=== PATIENT | male | born 1940 | race African-American/Black ===

== ENCOUNTER 2017-12-05 05:40 | Day surgery (SDC) | payer MEDICARE ==
--- NOTE | 2017-12-03 16:37 | Pre-Procedure Note/Attestation ---
Pre-Procedure Note/Attestation Complete Prior to Procedure Planned Procedure: right Procedure Narrative: phaco with IOL Indications for Procedure Pre-Operative Diagnosis: cataract Attestation I attest that I discussed the nature of the procedure; its benefits; risks and complications; and alternatives (and the risks and benefits of such alternatives ), prior to the procedure, with the patient (or the patient's legal field support representative). I attest that, if there was a reasonable possibility of needing a blood transfusion, the patient (or the patient's legal field support representative) was given the [facility] standardized written summary, pursuant to the Michael Falcon Blood Safety Act ([place] Health and Safety Code # 1645, as amended). I attest that I re-evaluated the patient just prior to the surgery and that there has been no change in the patient's H&P, except as documented below: NUZHAT PIMENTEL Dec 03, 2017 16:37
--- NOTE | 2017-12-03 16:39 | Opthalmology H&P ---
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 NUZHAT PIMENTEL Dec 03, 2017 16:39
[2017-12-04 09:06] LABS: BASOPHILS % (AUTO) 0.4 % (0.0-2.0); EOSINOPHILS % (AUTO) 1.7 % (0.0-3.0); HEMATOCRIT 46.3 % (42.0-52.0); HEMOGLOBIN 15.2 G/DL (14.2-18.0); LYMPHOCYTES % (AUTO) 29.1 % (20.0-45.0); MEAN CORPUSCULAR VOLUME 92 FL (80-99); MONOCYTES % (AUTO) 8.4 % (1.0-10.0); NEUTROPHILS % (AUTO) 60.4 % (45.0-75.0); PLATELET COUNT 216 K/UL (150-450); RED BLOOD COUNT 5.05 M/UL (4.70-6.10); RED CELL DISTRIBUTION WIDTH 11.6 % (11.6-14.8); WHITE BLOOD COUNT 7.1 K/UL (4.8-10.8)
[2017-12-04 09:15] LABS: ANION GAP 5 mmol/L (5-15); BLOOD UREA NITROGEN 24 mg/dL (7-18); CALCIUM 9.9 MG/DL (8.5-10.1); CARBON DIOXIDE 29 MMOL/L (21-32); CHLORIDE 101 MMOL/L (98-107); CREATININE 1.5 MG/DL (0.55-1.30); POTASSIUM 4.6 MMOL/L (3.5-5.1); SODIUM 135 MMOL/L (136-145)
--- NOTE | 2017-12-04 17:30 | Pre-op HX & Phy Repo 2 SIG ---
DATE OF ADMISSION: 12/05/2017 PRESURGICAL INTERNAL MEDICINE HISTORY AND PHYSICAL DATE OF EVALUATION: 12/04/2017. Surgery is scheduled for 12/05/2017. REQUESTING PHYSICIAN: Anjum Faust M.D. REASON FOR EVALUATION: The patient is a 77-year-old male going for elective surgery on the right eye. The patient has a cataract, right eye. Please see Ophthalmology History and Physical by Dr. Anjum Faust. The patient was evaluated. Chart was reviewed. The patient is seen at [facility]. PAST MEDICAL HISTORY AND REVIEW OF SYSTEMS: Remarkable for coronary heart disease, heart attack in 2014 permanent pacemaker placement, and history of hypertension. No stroke or seizures. The patient has insulin-dependent diabetes mellitus, history of constipation, and chronic urinary tract infection. Denied history of thyroid problem. No anemia. No Parkinson disease. No renal failure or prostate problem. PAST SURGICAL HISTORY: Trauma left eye surgery in 1962, and permanent pacemaker placement 3 years ago. PRESENT MEDICATIONS: Include Coreg 25 mg, Eliquis 5 mg, lisinopril 5 mg, nitrofurantoin 100 mg, metformin 500 mg, Lasix 20 mg, and Lantus 10 units at the bedtime. ALLERGIES: Not known to medication or food. FAMILY HISTORY: Father from renal failure and mother has diabetes. HABITS: The patient smokes approximately a [id number] for the last 60 years[address] No alcohol. No street drugs. PHYSICAL EXAMINATION: GENERAL: Alert gentleman in his 70s. VITAL SIGNS: Blood pressure 129/83, temperature 97.8, pulse 88, respirations 18, and O2 saturation 100% on room air. SKIN: Dry and warm . No rashes. No ulcers. LYMPH NODES: Not enlarged. HEENT: Head, normocephalic and atraumatic. Ears, clear. Eyes, full description per Dr. Anjum Faust. Mouth, dentures upper and lower. Mucous, clear and moist. NECK: No jugular venous distention. Carotids artery +2. No palpable mass. Trachea midline. CHEST: No deformity or asymmetry. LUNGS: Clear. No rales or rhonchi. HEART: Normal rhythm. No murmur. No ectopy. Pacemaker. ABDOMEN: Soft and benign. No palpable mass. No rebound. EXTREMITIES: No edema. No varices. No calf tenderness. GENITOURINARY TRACT: Dysuria and chronic urinary tract infection. NEURO SYSTEM: No tremor. No nystagmus. DIAGNOSTIC DATA: ECG, ventricular basis rhythm, biventricular pacemaker. The patient is to be NPO after midnight tonight. Laboratory work pending. IMPRESSION: 1. Cataract, right eye. 2. Hypertension, controlled. 3. Insulin-dependent diabetes mellitus. 4. Chronic urinary tract infection. 5. Permanent pacemaker. 6. History of myocardial infarction. PLAN: Cataract extraction, right eye. History and Physical as above per Dr. Anjum Faust. CONCLUSION: The patient is a 77-year-old male with multiple medical problems including history of myocardial infarction, permanent pacemaker checked 2 weeks ago by the slip dumper, and history of hypertension and insulin-dependent diabetes mellitus both controlled with medication. The patient has a chronic urinary tract infection and intermediate antibiotic medication. The patient is to be NPO after midnight, 12/05/2017. The patient's condition optimized for surgery. Thank you very much, Dr. Faust, for the privilege to participate in presurgical care of this interesting patient. Angelina Valdez M.D. DR: RANDY JOB#: [id number] CC:
[~2017-12-05] VITALS: Ht 167.6 cm; Wt 70.3 kg
[2017-12-05] VITALS (9 sets, daily range): BP systolic 122–134; BP diastolic 75–80
[~2017-12-05 05:40] MED LIST: CARVEDILOL25 MG ORAL; ELIQUIS5 MG PO; FUROSEMIDE20 M1 ORAL; LISINOPRIL5 MG ORAL; MACROBID100 MG ORAL; METFORMIN HCL500 M1 ORAL
[2017-12-05] MEDS: Cyclopentolate 1% Opth Sol 2ml RIGHT EYE SCH ×3 (06:59→07:28)
[2017-12-05] MEDS ORDERED: Tetracaine 0.5% Opth 4ml Soln RIGHT EYE ONE (07:00)
[2017-12-05] MEDS ORDERED: Maxitrol Opth Oint 3.5gm ONE (07:00)
[2017-12-05] MEDS ORDERED: Proparacaine 0.5% Opth Soln 15ml RIGHT EYE ONE (07:00)
[2017-12-05] MEDS ORDERED: Akten 3.5% 1ml Btl RIGHT EYE ONE (07:00)
[2017-12-05] MEDS ORDERED: Pilocarpine 2% Opth 15ml Soln ONE (07:00)
[2017-12-05] MEDS ORDERED: Pred Forte 1% Opth Susp 1ml ONE (07:00)
[2017-12-05] MEDS ORDERED: Dexamethasone 4mg/ml vial ONE (07:00)
[2017-12-05] MEDS: Phenylephrine 10% Opth Soln 5ml RIGHT EYE SCH ×3 (07:01→07:28)
[2017-12-05] MEDS: Tobramycin Op Soln 0.3% 5ml RIGHT EYE SCH ×3 (07:02→07:29)
[2017-12-05] MEDS: Diclofenac Sod 0.1% Op Soln RIGHT EYE SCH ×4 (07:02→07:30)
[2017-12-05] MEDS: Tropicamide 1% Opth 15ml Soln RIGHT EYE SCH ×3 (07:13→07:30)
[2017-12-05] MEDS ORDERED: Sterile Water Irrig 1000ml IRRIG ONE (08:30)
[2017-12-05] MEDS ORDERED: NS Irrig 1000ml ONE (08:30)
[2017-12-05] MEDS ORDERED: LR 1000ml ONE (08:30)
[2017-12-05] MEDS ORDERED: BSS 500ml btl ONE (08:31)
[2017-12-05] MEDS ORDERED: Povidone-Iodine 5% opth solution ONE (08:31)
[2017-12-05] MEDS ORDERED: BSS 15ml BTL ONE (08:31)
[2017-12-05] MEDS ORDERED: Sodium Hyaluronate 14 mg/ml 0.85ml ONE (08:31)
--- NOTE | 2017-12-05 08:35 | Anethesia Preoperative Eval ---
Anesthesia Pre-op PMH/ROS General Date of Evaluation: Dec 05, 2017 Time of Evaluation: 08:25 Anesthesiologist: Mercy Scruggs CRNA ASA Score: ASA 3 Mallampati Score Class I : Soft palate, uvula, fauces, pillars visible Class II: Soft palate, uvula, fauces visible Class III: Soft palate, base of uvula visible Class IV: Only hard plate visible Mallampati Classification: Class II Surgeon: Christianne Diagnosis: RIGHT eye catarat Surgical Procedure: RIGHT eye cataract extraction IOL Anesthesia History: none Social History: current smoker Family History: no anesthesia problems Allergies: Coded Allergies: No Known Allergies (Unverified , 12/03/17) Medications: see eMAR Past Medical History Cardiovascular: Reports: HTN, CAD, CT, other - Permanent pacemaker; Denies: valve dz, arrhythmia Pulmonary: Reports: other - Smoker 50 pack years Gastrointestinal/Genitourinary: Denies: GERD, CRI, ESRD, other Neurologic/Psychiatric: Denies: dementia, CVA, depression/anxiety, TIA, other Endocrine: Reports: DM - FBS 112; Denies: hypothyroidism, steroids, other HEENT: Reports: cataract (R) Hematology/Immune: Denies: anemia, DVT, bleeding disorder, other Musculoskeletal/Integumentary: Reports: OA; Denies: RA, DJD, DDD, edema, other PMH Narrative: as above PSxH Narrative: [place], LEFT eye trauma surgery Anesthesia Pre-op Phys. Exam Physician Exam Last Vital Signs Date Time Temp Pulse Resp B/P (MAP) Pulse Ox O2 Delivery O2 Flow Rate FiO2 12/05/17 07:34 Room Air 12/05/17 07:05 97.2 70 18 130/75 (93) 99 97.2 Constitutional: NAD Neurologic: CN 2-12 intact Cardiovascular: RRR Respiratory: CTA Gastrointestinal: S/NT/ND Airway Exam Mallampati Score: Class II MO: full TMD: > 3FB ROM: full Teeth: other - edentuous Dentures: upper, lower Anesthesia Pre-op A/P Labs Hematology Test 12/04/17 08:55 White Blood Count 7.1 K/UL (4.8-10.8) Red Blood Count 5.05 M/UL (4.70-6.10) Hemoglobin 15.2 G/DL (14.2-18.0) Hematocrit 46.3 % (42.0-52.0) Mean Corpuscular Volume 92 FL (80-99) Mean Corpuscular Hemoglobin 30.1 PG (27.0-31.0) Mean Corpuscular Hemoglobin Concent 32.9 G/DL (32.0-36.0) Red Cell Distribution Width 11.6 % (11.6-14.8) Platelet Count 216 K/UL (150-450) Mean Platelet Volume 6.8 FL (6.5-10.1) Neutrophils (%) (Auto) 60.4 % (45.0-75.0) Lymphocytes (%) (Auto) 29.1 % (20.0-45.0) Monocytes (%) (Auto) 8.4 % (1.0-10.0) Eosinophils (%) (Auto) 1.7 % (0.0-3.0) Basophils (%) (Auto) 0.4 % (0.0-2.0) Coagulation Test 12/04/17 08:55 Prothrombin Time 10.7 SEC (9.30-11.50) Prothromb Time International Ratio 1.0 (0.9-1.1) Activated Partial Thromboplast Time 31 SEC (23-33) Chemistry Test 12/04/17 08:55 Sodium Level 135 MMOL/L (136-145) L Potassium Level 4.6 MMOL/L (3.5-5.1) Chloride Level 101 MMOL/L (98-107) Carbon Dioxide Level 29 MMOL/L (21-32) Anion Gap 5 mmol/L (5-15) Blood Urea Nitrogen 24 mg/dL (7-18) H Creatinine 1.5 MG/DL (0.55-1.30) H Estimat Glomerular Filtration Rate mL/min (>60) Glucose Level 97 MG/DL (74-106) Calcium Level 9.9 MG/DL (8.5-10.1) Studies Pre-op Studies: EKG - Bi-ventricular pacer Risk Assessment & Plan Assessment: ASA 3 ok to proceed Plan: MAC Status Change Before Surgery: Yes Pre-Antibiotics Given Within 1 Hr of Incision: Mercy Contreras CRNA Dec 05, 2017 08:35
[2017-12-05] MEDS ORDERED: Midazolam 2mg/2ml Inj ONE (08:38)
[2017-12-05] MEDS ORDERED: Lidocaine 1% MPF 10mg/ml 5ml ONE (08:39)
--- NOTE | 2017-12-05 09:45 | Immediate Post-Op Evaluation ---
Immediate Post-Op Evalulation Immediate Post-Op Evalulation Procedure: RIGHT cataract extraction IOL Date of Evaluation: Dec 05, 2017 Time of Evaluation: 09:40 IV Fluids: LR 100 ml Estimated Blood Loss: minimal Blood Pressure Systolic: 134 Blood Pressure Diastolic: 80 Pulse Rate: 70 Respiratory Rate: 28 O2 Sat by Pulse Oximetry: 100 Temperature (Fahrenheit): 97.7 Pain Score (1-10): 0 Nausea: No Vomiting: No Complications none Patient Status: awake, reacts Hydration Status: adequate Given Within 1 Hr of Incision: Mercy Contreras CRNA Dec 05, 2017 09:45
--- NOTE | 2017-12-05 12:52 | 48 Hour Post Anesthesia Eval ---
Post Anesthesia Evaluation Procedure: RIGHT cataract extraction IOL Date of Evaluation: Dec 05, 2017 Time of Evaluation: 10:50 Blood Pressure Systolic: 126 0: 78 Pulse Rate: 72 Respiratory Rate: 20 Temperature (Fahrenheit): 97.9 O2 Sat by Pulse Oximetry: 99 Airway: patent Nausea: No Vomiting: No Pain Intensity: 0 Hydration Status: adequate Cardiopulmonary Status: stable Mental Status/LOC: patient returned to baseline Follow-up Care/Observations: f/u with surgeon Post-Anesthesia Complications: none Follow-up care needed: ready to discharge Mercy Scruggs CRNA Dec 05, 2017 12:52
[2017-12-06] MEDS ORDERED: Tropicamide 1% Opth 15ml Soln RIGHT EYE SCH (07:00)
--- NOTE | 2017-12-08 19:24 | Brief Operative Note ---
Immediate Post Operative Note Operative Note Chief Complaint: blurry vision Pre-op Diagnosis: cataract, OD Procedure: phaco with IOL, OD Post-op Diagnosis: Pseudophakia, OD Post-op Diagnosis: same as pre-op Findings: consistent w/pre-op dx studies Surgeon: Christianne Anesthesiologist: Sheba Anesthesia: MAC Specimen: none Complications: none Condition: stable Fluids: LR Estimated Blood Loss: none Drains: none Implant(s) used?: Yes NUZHAT PIMENTEL Dec 08, 2017 19:24
--- NOTE | 2017-12-08 19:25 | Operative Note - PDOC ---
Operative Note Operative Note Date of Operation/Procedure: Dec 05, 2017 Chief Complaint: blurry vision Pre-op Diagnosis: cataract, OD Procedure: phaco with IOL, OD Post-op Diagnosis: Pseudophakia, OD Post-op Diagnosis: same as pre-op Operative Findings: consistent w/pre-op dx studies Surgeon: Christianne Anesthesiologist: Sheba Anesthesia: MAC Specimen: none Complications: none Condition: stable Fluids: LR Estimated Blood Loss: none Drains: none Implant(s) used?: Yes Indications for Procedure cataract Description of Procedure This patient has been complaining visually significant cataract in the affected eye with the best corrected visual acuity under moderate glare conditions worse. The patient complains of difficulties with glare in performing activities of daily living and wants to manage personal affairs with comfort and accuracy and see well enough to move with safety at home and outdoors. The risks, benefits and alternatives of the procedure were discussed with the patient in the office prior to scheduling surgery. All questions from the patient were answered after the surgical procedure was explained in detail. The risks of the procedure as explained to the patient include, but are not limited to, pain, infection, bleeding, loss of vision, retinal detachment, need for further surgery, loss of lens nucleus, double vision, etc. Alternative procedures were discussed which include, to do nothing or seek a second opinion. Informed consent for this procedure was obtained from the patient. The patient was referred to a primary care physician for a cardiopulmonary clearance prior to surgery, after proper evaluation was done patient was properly scheduled for outpatient surgery. The patient was brought to the operating room where the anesthesiologist established I.V. lines and cardiac monitoring leads. Mild intravenous sedation was administered. The patient was then prepared with a 5% solution of povidone- iodine to the conjunctival fornix and lashes, and a 5% solution of povidone- iodine to the lids and periorbital skin. The patient was then draped in the usual sterile fashion. A lid speculum was then placed in the operative eye. A keratome blade was then used to create a biplanar incision into the anterior chamber. Viscoelastics was then instilled into the anterior chamber. A capsulorrhexis was then fashioned with an utrata forceps. BSS and a G 27 cannula were then used to hydrodissect and hydro delineate the lens. Paracentesis incision was made at 3 o'clock with sharp blade. The phacoemulsification unit, after being properly adjusted and tested, was then used to emulsify the nucleus. Residual cortical material was aspirated with the irrigation and aspiration unit. Healon was then instilled into the anterior chamber. The corneal wound was then enlarged to the size of the optic with the zane keratome blade. The intraocular lens was then inspected for right power and size and thought to be satisfactory. Then the lens was gently placed in the capsular bag. Positioning within the capsular bag was confirmed by direct visualization. Optic centration was accomplished with a Sinskey hook. Viscoelastics was removed from the anterior chamber using the irrigation and aspiration unit. The corneal wound was then tested for leaks and none were found. The lid speculum were then removed. Sponge and needle counts were correct. An eye patch and shield were placed over the operative eye. The patient was taken to the recovery room in stable condition. There were no complications. The patient tolerated the procedure well. The patient was then transferred to the ambulatory surgery unit in stable and satisfactory condition , was given detailed written instructions and asked to follow up in the office the next day. NUZHAT PIMENTEL Dec 08, 2017 19:25
== END 2017-12-05 11:00 | disposition home or self-care (01) ==
LOC: SUR 05:40
DX: H25.11 Age-related nuclear cataract, right eye (principal); I25.10 Atherosclerotic heart disease of native coronary artery without angina pectoris; I25.2 Old myocardial infarction; Z95.0 Presence of cardiac pacemaker; I10 Essential (primary) hypertension; E11.9 Type 2 diabetes mellitus without complications; Z79.4 Long term (current) use of insulin; F17.210 Nicotine dependence, cigarettes, uncomplicated; M19.90 Unspecified osteoarthritis, unspecified site; Z87.440 Personal history of urinary (tract) infections
CPT/HCPCS: 36415; 66984; 80048; 82962; 85025; 85610; 85730; 93005; J0360; J1100; J2250; V2632; 94003; 94150